=== PATIENT | male | born 1930 | race Caucasian/White ===

== ENCOUNTER → 2016-11-26 | Outpatient (CLI) | payer OTHER, MEDICARE ==
[~2016-11-26] MED LIST: ALDACTONE25 MG PO; AVODART0.5 M1 PO; CARVEDILOL12.5 M1 PO; CO Q; FERROUS SULFAT325 M2 PO; FLO4 PO; LEVOTHYROXIN0.075 M2 PO; PLAVIX75 MG PO; PROTONIX40 MG PO; SERTRALINE25 M1 PO; SIMVASTATIN10 M1 PO; VITAMIN D32000 I2 PO; XARELTO10 M1 PO
== END | disposition home or self-care (01) ==
LOC: US 12:33 → EDSTATUS 12:50
PROC: B54MZZZ Ultrasonography of Right Upper Extremity Veins (ICD-10-PCS; principal; 2016-11-26)
DX: M79.89 Other specified soft tissue disorders (principal)

== ENCOUNTER 2016-12-18 09:45 | Inpatient (IN) | payer OTHER, MEDICARE ==
[~2016-12-18] VITALS: Ht 177.8 cm; Wt 90.0 kg
[2016-12-18] MEDS ORDERED: LEVOTHYROXIN0.075 M2 PO (10:18)
[2016-12-18] MEDS ORDERED: FEOSOL65 M1 PO (10:19)
[2016-12-18] MEDS ORDERED: COREG12.5 MG PO (10:20)
[2016-12-18] MEDS ORDERED: ZOL100 PO (10:20)
[2016-12-18] MEDS ORDERED: PANTOPRAZOLE SO40 M1 PO (10:21)
[2016-12-18] MEDS ORDERED: SIMVASTATIN10 M1 PO (10:21)
[2016-12-18] MEDS ORDERED: XARELTO10 M1 PO (10:22)
[2016-12-18] MEDS ORDERED: FLOMAX0.4 MG PO (10:22)
[2016-12-18] MEDS ORDERED: MASON NATURAL1000 IU (10:23)
[2016-12-18] MEDS ORDERED: AVODART0.5 M1 PO (10:23)
[2016-12-18] MEDS ORDERED: COQ-1030 MG (10:24)
[2016-12-18 10:40] LABS: BASOPHIL % 0.2 % (0-2); PLATELET COUNT 143 x10^3mcL (130-400)
[2016-12-18 10:43] LABS: RED CELL DISTRIBUTION WIDTH 19.4 % (11.5-14.5)
[2016-12-18 10:48] LABS: ALBUMIN 3.4 g/dL (3.4-5.0); ALKALINE PHOSPHATASE 146 U/L (46-116); ALT/SGPT 25 U/L (16-63); AST/SGOT 60 U/L (15-37); BILIRUBIN TOTAL 1.13 mg/dL (0.20-1.00); CALCIUM 9.2 mg/dL (8.5-10.1); CARBON DIOXIDE 26.9 mmol/L (21-32); CHLORIDE SERUM 103 mmol/L (98-107); CREATININE SERUM 0.8 mg/dL (0.7-1.3); GLUCOSE SERUM 108 mg/dL (74-106); SODIUM SERUM 137 mmol/L (136-145)
[2016-12-18 12:35] LABS: UA SPECIFIC GRAVITY 1.015 (1.005-1.035); microscopic required? YES; urine erythrocyte NEGATIVE (NEGATIVE)
[2016-12-18 13:42] LABS: MAGNESIUM 1.9 mg/dL (1.8-2.4)
[2016-12-18 13:51] LABS: T3 TOTAL 0.48 ng/mL
[2016-12-18 13:55] LABS: FREE T4 1.39 ng/dL (0.76-1.46); FREE THYROXINE INDEX 2.9 ug/dL (1.4-4.5); T4(THYROXINE) 8.2 ug/dL (4.7-13.3)
[2016-12-18 16:00] VITALS: BP 97/59
[2016-12-18 16:59] LABS: CALCIUM 8.4 mg/dL (8.5-10.1); CHLORIDE SERUM 105 mmol/L (98-107); CREATININE SERUM 0.9 mg/dL (0.7-1.3); POTASSIUM SERUM 3.7 mmol/L (3.5-5.1); SODIUM SERUM 139 mmol/L (136-145)
[2016-12-18 17:09] LABS: GLUCOSE SERUM 28 mg/dL (74-106)
[2016-12-18 17:24] VITALS: BP 97/59
[2016-12-18 18:16] VITALS: BP 97/59
[2016-12-18 19:55] VITALS: BP 92/52
[2016-12-18 21:45] LABS: PLATELET COUNT 77 x10^3mcL (130-400)
[2016-12-18 21:49] LABS: CALCIUM 8.7 mg/dL (8.5-10.1); CARBON DIOXIDE 25.8 mmol/L (21-32); CHLORIDE SERUM 101 mmol/L (98-107); CREATININE SERUM 0.9 mg/dL (0.7-1.3); HDL CHOLESTEROL 39 mg/dL (40-60); SODIUM SERUM 136 mmol/L (136-145)
[2016-12-18 21:50] LABS: BAND NEUTROPHIL 19 % (0-10); BASOPHIL 0 % (0-2); METAMYELOCTE 3 % (0-2); MONOCYTE 4 % (0-7); MYELOCYTE 1 % (0-2); SEGMENTED NEUTROPHILS 69 % (37-75)
[2016-12-18 21:53] LABS: rbc morphology (normal/abnorm) ABNORMAL (NORMAL)
[2016-12-18 21:56] LABS: PLATELET MORPHOLOGY PLATELETS DECREASED
[2016-12-18 21:59] LABS: CHOLESTEROL 61 mg/dL (<200); CHOLESTEROL/HDL RATIO 1.6; TRIGLYCERIDES 27 mg/dL (<150)
[2016-12-18 22:00] LABS: GLUCOSE SERUM 46 mg/dL (74-106)
[2016-12-19] VITALS (7 sets, daily range): BP systolic 104–130; BP diastolic 27–68
[2016-12-19 07:00] LABS: CALCIUM 8.8 mg/dL (8.5-10.1); CARBON DIOXIDE 23.9 mmol/L (21-32); CHLORIDE SERUM 104 mmol/L (98-107); CREATININE SERUM 1.2 mg/dL (0.7-1.3); GLUCOSE SERUM 70 mg/dL (74-106); MAGNESIUM 1.6 mg/dL (1.8-2.4); PHOSPHOROUS 3.7 mg/dL (2.5-4.9); POTASSIUM SERUM 4.1 mmol/L (3.5-5.1); SODIUM SERUM 140 mmol/L (136-145)
[2016-12-19 07:20] LABS: BASOPHIL % 0 % (0-2); PLATELET COUNT 74 x10^3mcL (130-400); RED CELL DISTRIBUTION WIDTH 18.9 % (11.5-14.5)
[2016-12-20] VITALS (9 sets, daily range): BP systolic 102–140; BP diastolic 62–78
[2016-12-20 05:44] LABS: BASOPHIL % 0.2 % (0-2)
[2016-12-20 05:47] LABS: PLATELET COUNT 78 x10^3mcL (130-400); RED CELL DISTRIBUTION WIDTH 19.1 % (11.5-14.5)
[2016-12-20 06:04] LABS: CALCIUM 8.8 mg/dL (8.5-10.1); CHLORIDE SERUM 105 mmol/L (98-107); CREATININE SERUM 1.3 mg/dL (0.7-1.3); GLUCOSE SERUM 100 mg/dL (74-106); POTASSIUM SERUM 3.7 mmol/L (3.5-5.1); SODIUM SERUM 141 mmol/L (136-145)
[2016-12-21] VITALS (17 sets, daily range): BP systolic 98–125; BP diastolic 54–86
[2016-12-21 05:25] LABS: BASOPHIL % 0.3 % (0-2)
[2016-12-21 05:28] LABS: PLATELET COUNT 74 x10^3mcL (130-400); RED CELL DISTRIBUTION WIDTH 19.4 % (11.5-14.5)
[2016-12-21 05:33] LABS: ALKALINE PHOSPHATASE 70 U/L (46-116); ALT/SGPT 13 U/L (16-63); AST/SGOT 16 U/L (15-37); BILIRUBIN TOTAL 1.14 mg/dL (0.20-1.00); CALCIUM 8.7 mg/dL (8.5-10.1); CARBON DIOXIDE 28.4 mmol/L (21-32); CHLORIDE SERUM 106 mmol/L (98-107); CREATININE SERUM 1.3 mg/dL (0.7-1.3); GLUCOSE SERUM 96 mg/dL (74-106); PHOSPHOROUS 3.6 mg/dL (2.5-4.9); POTASSIUM SERUM 3.1 mmol/L (3.5-5.1); SODIUM SERUM 142 mmol/L (136-145)
[2016-12-21 05:35] LABS: ALBUMIN 2.2 g/dL (3.4-5.0)
[2016-12-22] VITALS (17 sets, daily range): BP systolic 95–116; BP diastolic 46–66; Ht 177.8 cm; Wt 90.0 kg
[2016-12-22 04:51] LABS: BASOPHIL % 0.1 % (0-2)
[2016-12-22 04:52] LABS: RED CELL DISTRIBUTION WIDTH 19.2 % (11.5-14.5)
[2016-12-22 04:53] LABS: PLATELET COUNT 63 x10^3mcL (130-400)
[2016-12-22 05:14] LABS: CALCIUM 8.4 mg/dL (8.5-10.1); CARBON DIOXIDE 26.1 mmol/L (21-32); CHLORIDE SERUM 103 mmol/L (98-107); CREATININE SERUM 1.6 mg/dL (0.7-1.3); GLUCOSE SERUM 100 mg/dL (74-106); MAGNESIUM 1.9 mg/dL (1.8-2.4); PHOSPHOROUS 4.1 mg/dL (2.5-4.9); POTASSIUM SERUM 3.7 mmol/L (3.5-5.1); SODIUM SERUM 138 mmol/L (136-145)
[2016-12-23] VITALS (17 sets, daily range): BP systolic 106–137; BP diastolic 56–71
[2016-12-23 05:23] LABS: BASOPHIL % 0.2 % (0-2)
[2016-12-23 05:27] LABS: PLATELET COUNT 62 x10^3mcL (130-400); RED CELL DISTRIBUTION WIDTH 19.1 % (11.5-14.5)
[2016-12-23 05:40] LABS: CALCIUM 8.6 mg/dL (8.5-10.1); CHLORIDE SERUM 100 mmol/L (98-107); CREATININE SERUM 1.9 mg/dL (0.7-1.3); GLUCOSE SERUM 95 mg/dL (74-106); PHOSPHOROUS 4.2 mg/dL (2.5-4.9); POTASSIUM SERUM 3.5 mmol/L (3.5-5.1); SODIUM SERUM 137 mmol/L (136-145)
[2016-12-24] VITALS (16 sets, daily range): BP systolic 130–165; BP diastolic 56–93
[2016-12-24 05:59] LABS: BASOPHIL % 0.4 % (0-2); PLATELET COUNT 62 x10^3mcL (130-400); RED CELL DISTRIBUTION WIDTH 18.8 % (11.5-14.5)
[2016-12-24 06:31] LABS: CALCIUM 8.7 mg/dL (8.5-10.1); CARBON DIOXIDE 26.2 mmol/L (21-32); CHLORIDE SERUM 103 mmol/L (98-107); CREATININE SERUM 1.7 mg/dL (0.7-1.3); GLUCOSE SERUM 117 mg/dL (74-106); MAGNESIUM 2.1 mg/dL (1.8-2.4); POTASSIUM SERUM 3.2 mmol/L (3.5-5.1); SODIUM SERUM 139 mmol/L (136-145)
[2016-12-25] VITALS (13 sets, daily range): BP systolic 79–130; BP diastolic 44–68
[2016-12-25 05:52] LABS: BASOPHIL % 0.1 % (0-2)
[2016-12-25 05:54] LABS: PLATELET COUNT 59 x10^3mcL (130-400); RED CELL DISTRIBUTION WIDTH 18.7 % (11.5-14.5)
[2016-12-25 05:57] LABS: CALCIUM 8.6 mg/dL (8.5-10.1); CARBON DIOXIDE 30.5 mmol/L (21-32); CHLORIDE SERUM 104 mmol/L (98-107); CREATININE SERUM 1.4 mg/dL (0.7-1.3); GLUCOSE SERUM 110 mg/dL (74-106); PHOSPHOROUS 3.9 mg/dL (2.5-4.9); SODIUM SERUM 141 mmol/L (136-145)
[2016-12-25 06:00] LABS: POTASSIUM SERUM 2.7 mmol/L (3.5-5.1)
[2016-12-26 03:45] VITALS: BP 76/43
== END 2016-12-26 05:34 | disposition expired | DRG 870 ==
LOC: ED 09:45 → IC 11:47
PROVIDERS: Emergency Medicine; Family Medicine; ADMIT Student in an Organized Health Care Education/Training Program
PROC: 0BH17EZ Insertion of Endotracheal Airway into Trachea, Via Natural or Artificial Opening (ICD-10-PCS; principal; 2016-12-20)
PROC: 5A1955Z Respiratory Ventilation, Greater than 96 Consecutive Hours (ICD-10-PCS; 2016-12-20)
PROC: 05HN33Z Insertion of Infusion Device into Left Internal Jugular Vein, Percutaneous Approach (ICD-10-PCS; 2016-12-20)
PROC: B544ZZA Ultrasonography of Left Jugular Veins, Guidance (ICD-10-PCS; 2016-12-20)
PROC: 0BC88ZZ Extirpation of Matter from Left Upper Lobe Bronchus, Via Natural or Artificial Opening Endoscopic (ICD-10-PCS; 2016-12-22)
PROC: 0BC58ZZ Extirpation of Matter from Right Middle Lobe Bronchus, Via Natural or Artificial Opening Endoscopic (ICD-10-PCS; 2016-12-22)
PROC: 0BC68ZZ Extirpation of Matter from Right Lower Lobe Bronchus, Via Natural or Artificial Opening Endoscopic (ICD-10-PCS; 2016-12-22)
PROC: 0BCB8ZZ Extirpation of Matter from Left Lower Lobe Bronchus, Via Natural or Artificial Opening Endoscopic (ICD-10-PCS; 2016-12-22)
PROC: 0BC48ZZ Extirpation of Matter from Right Upper Lobe Bronchus, Via Natural or Artificial Opening Endoscopic (ICD-10-PCS; 2016-12-22)
DX: A41.9 Sepsis, unspecified organism (principal); J96.01 Acute respiratory failure with hypoxia; I50.43 Acute on chronic combined systolic (congestive) and diastolic (congestive) heart failure; J69.0 Pneumonitis due to inhalation of food and vomit; N17.0 Acute kidney failure with tubular necrosis; E43 Unspecified severe protein-calorie malnutrition; J44.1 Chronic obstructive pulmonary disease with (acute) exacerbation; R65.20 Severe sepsis without septic shock; L89.152 Pressure ulcer of sacral region, stage 2; I48.91 Unspecified atrial fibrillation; D69.59 Other secondary thrombocytopenia; H35.30 Unspecified macular degeneration; E03.9 Hypothyroidism, unspecified; N40.0 Benign prostatic hyperplasia without lower urinary tract symptoms; D64.9 Anemia, unspecified; Z68.25 Body mass index [BMI] 25.0-25.9, adult; Z95.0 Presence of cardiac pacemaker; Z95.2 Presence of prosthetic heart valve; Z95.1 Presence of aortocoronary bypass graft; Z87.891 Personal history of nicotine dependence; Z85.819 Personal history of malignant neoplasm of unspecified site of lip, oral cavity, and pharynx; Z66 Do not resuscitate
CPT/HCPCS: 31645; 36556; 36600; 82962; 83880; 84439; A4628; C9113; J0330; J1642; J1644; J1815; J1940; J1956; J2060; J2250; J2270; J2543; J3010; J3475; J3480; J3490; J7030; J7040; J7613; J7620; J7626; J7644; Q0092